=== PATIENT | male | born 1995 | race Caucasian/White ===

== ENCOUNTER 2020-11-30 09:45 | Emergency (ER) | payer OTHER, BC ==
[~2020-11-30 09:45] MED LIST: SULFAMETH/TRIME1 TA2 PO
[2020-11-30] MEDS ORDERED: CLARITIN 1010 MG/TAB PO (09:54)
[2020-11-30] MEDS ORDERED: FLONASE ALLERG9.9 ML NS (09:54)
[2020-11-30] MEDS ORDERED: DAILY-VITE1 EACH PO (09:54)
[2020-11-30 11:36] VITALS: BP 132/77
== END 2020-11-30 11:36 | disposition home or self-care (01) ==
LOC: ED 09:45
DX: M54.6 Pain in thoracic spine (principal); F17.290 Nicotine dependence, other tobacco product, uncomplicated; V89.2XXA Person injured in unspecified motor-vehicle accident, traffic, initial encounter
CPT/HCPCS: 15973; L0172

== ENCOUNTER → 2023-11-15 | Outpatient (CLI) | payer BC ==
[~2023-11-15] MED LIST changes: +CLARITIN 1010 MG/TAB PO; +DAILY-VITE1 EACH PO; +FLONASE ALLERG9.9 ML NS
[2023-11-15 15:20] LABS: BASO # 0.03 K/mm3 (0.02-0.10); EOS # 0.14 K/mm3 (0.04-0.40); EOS % 1.6 % (0.0-4.0); HEMATOCRIT 44.6 % (42.0-52.0); HEMOGLOBIN 14.4 g/dL (13.5-18.0); MEAN CELL VOLUME 84 fl (78-100); MEAN CORPUSCULAR HEMOGLOBIN 27 pg (27-31); MEAN CORPUSCULAR HGB CONC 32 g/dL (33-37); MEAN PLATELET VOLUME 9.6 fl (7.4-10.4); MONO # 0.58 K/mm3 (0.20-0.80); NEU # 6.15 K/mm3 (1.40-6.50); PLATELET COUNT 290 K/mm3 (130-400); RED BLOOD COUNT 5.33 M/mm3 (4.20-5.60); RED CELL DISTRIBUTION WIDTH 12.2 % (11.5-14.5); WHITE BLOOD COUNT 8.9 K/mm3 (4.8-10.8)
[2023-11-15 15:36] LABS: ALBUMIN 4.9 g/dL (3.5-5.0); PH-URINE 5.5 (5.0 - 8.0); SODIUM 142 mmol/L (136-145); URINE APPEARANCE CLEAR (CLEAR); URINE BILIRUBIN NEGATIVE (NEGATIVE); URINE BLOOD NEGATIVE (NEGATIVE); URINE COLOR YELLOW (YELLOW); URINE GLUCOSE NEGATIVE (NEGATIVE); URINE KETONE TRACE (NEGATIVE); URINE LEUKOCYTE ESTERASE NEGATIVE (NEGATIVE); URINE NITRATE NEGATIVE (NEGATIVE); URINE PROTEIN(semi-quant) NEGATIVE (NEGATIVE)
[2023-11-15 15:37] LABS: CALCIUM 10.3 mg/dL (8.3-10.5)
[2023-11-15 15:38] LABS: GLUCOSE 76 mg/dL (75-110); TOTAL PROTEIN 7.6 g/dL (6.4-8.3)
[2023-11-15 15:39] LABS: CARBON DIOXIDE 26 mmol/L (22-29)
[2023-11-15 15:40] LABS: TOTAL BILIRUBIN 0.5 mg/dL (0.2-1.2); URINE MUCUS PRESENT (NOT PRESENT)
[2023-11-15 15:44] LABS: AST-SGOT 19 U/L (5-34)
[2023-11-15 15:45] LABS: ALT/SGPT 33 U/L (0-55); LIPASE 23 U/L (8-78)
== END ==
LOC: RAD 14:56
PROVIDERS: Nurse Practitioner Family
DX: R10.9 Unspecified abdominal pain (principal)

== ENCOUNTER → 2023-12-23 | Outpatient (CLI) | payer BC | LOC: RAD 16:14 | DX: M67.461 Ganglion, right knee (principal) ==

== ENCOUNTER → 2024-01-24 | Outpatient (CLI) | payer BC | LOC: RAD 07:20 | DX: M67.461 Ganglion, right knee (principal) ==